=== PATIENT | male | born 1960 | race Caucasian/White ===

== ENCOUNTER 2022-11-06 11:49 | Emergency (ER) | payer BC, SELFPAY ==
[2022-11-06] VITALS (24 sets, daily range): BP systolic 96–145; BP diastolic 68–95; PULSE 87–138; RESP 16–18; TEMP 36.4–37.1; O2SAT 97–99
--- NOTE | ~2022-11-06 | CT_ITS ---
EXAMINATION: CT abdomen pelvis w con DATE: 11/06/2022 15:38 INDICATION: abdominal pain, lactic acidosis TECHNIQUE: Computed tomography (CT) of the abdomen and pelvis was performed with 100 mL Omnipaque 350 intravenous contrast. Automated exposure control and iterative reconstruction technique were employe d. The dose-length product was 464.81 mGy-cm. COMPARISON: None. FINDINGS: Lower thorax: Mild senescent change. Mild scattered tree-in-bud opacities. Patulous, fluid-filled eso phagus, with mucosal hyperemia. Liver: Normal. Biliary/Gallbladder: Gallbladder is normal. No bile duct dilation. Pancreas: Atrophy Spleen: Normal. Adrenals:No mass. Kidneys: No mass, stone, or hydronephrosis. Bilateral cortical thinning. GI tract: Small bowel perforation at the junction of the fourth portion of the duodenum and jejunum, in a region of focal narrowing and wall edema, with a spherical outpouching that exhibits wall breakd own, possible perforated ulcer or diverticulum. Multiple loops of nearby dilated small bowel in the l eft abdomen. Severe wall edema involving a short segment of proximal jejunum with adjacent fluid and gas. Uniform bowel wall enhancement. Interloop fluid. No pneumatosis. Fecal small bowel content. Delarosa sition point in the left lower quadrant (axial image 126/214). No large bowel dilation. Appendix not visualized. Diverticulosis without diverticulitis. Mesentery/Peritoneum: Small volume abdominal free air and fluid. Large volume of fluid in the pelvis, with a dependent gas collections.. Retroperitoneum: No mass. Pelvis: The urinary bladder is decompressed. Minimal prostate calcification.. Soft Tissues: Soft tissues and body wall unremarkable. Bones: No acute osseous finding. IMPRESSION: 1. Pulmonary opacities may represent atypical infection and/or bronchiolitis. 2. Small volume pneumoperitoneum, with moderate volume abdominopelvic fluid, secondary to bowel perfo ration, from a small bowel perforation at the level of the ligament of Treitz. Differential includes but is not limited to: Perforated ulcer, perforated diverticulum, or foreign body perforation. 3. Small bowel obstruction, transition point in the left lower quadrant. 4. Short segment of severe wall edema involving the proximal jejunum, likely secondary to inflammator y or ischemic change, given the presence of the nearby perforation. Results reported telephonically to Dr. Irving Reagan by Dr. Kramer at 4:20 PM on 11/06/2022. Reviewed, dictated and finalized at location K. PLANT MANAGER IMPRESSION: 1. Pulmonary opacities may represent atypical infection and/or bronchiolitis. 2. Small volume pneumoperitoneum, with moderate volume abdominopelvic fluid, se condary to bowel perforation, from a small bowel perforation at the level of th e ligament of Treitz. Differential includes but is not limited to: Perforated u lcer, perforated diverticulum, or foreign body perforation. 3. Small bowel obstruction, transition point in the left lower quadrant. 4. Short segment of severe wall edema involving the proximal jejunum, likely se condary to inflammatory or ischemic change, given the presence of the nearby pe rforation. Results reported telephonically to Dr. Irving Reagan by Dr. Kramer at 4:20 PM on 11/06/2022.
--- NOTE | ~2022-11-06 | XR_ITS ---
EXAM: XR abdomen NG/feed tube insert DATE: 11/06/2022 17:26 HISTORY: NG tube placed . COMPARISON: None available. FINDINGS: Bibasilar scar/atelectasis. NG tube, tip and side port project over the stomach. Normal erwin wel gas pattern. No organomegaly. No abnormal abdominal calcification. Degenerative change in the spi ne. IMPRESSION: NG tube, in good position. Reviewed, dictated and finalized at location K. ICAL INTEGRATION PRACTITIONER IMPRESSION: NG tube, in good position.
--- NOTE | ~2022-11-06 | XR_ITS ---
EXAM: XR abdomen NG/feed tube rechec DATE: 11/06/2022 18:14 HISTORY: Tube fell out during transfer, new tube placed . COMPARISON: 11/06/2022 at 5:22 PM. FINDINGS:/IMPRESSION: The NG tube has been replaced/repositioned, the tip and side port project over the stomach. No other significant interval change. Reviewed, dictated and finalized at location K. AGE TESTER
--- NOTE | 2022-11-06 12:04 | ED.GENADULT ---
HPI - General Adult General Chief complaint: Urogenital-Male Stated complaint: abdominal pain Time Seen by Provider: 11/06/22 11:56 History of Present Illness HPI narrative: Abe is a previously healthy 61M that presented to the ED with abdominal pain. It started yesterday afternoon and is a bilateral lower abdominal pain that is worse with bearing down, coughing or sneezing. It is better with lying down. He had 4 episodes of non-bloody vomiting last night. Last BM was yesterday morning. No diarrhea, fevers or chills. Related Data Home Medications Medication Instructions Recorded Confirmed No Home Medications 11/06/22 11/06/22 Allergies Allergy/AdvReac Type Severity Reaction Status Date / Time Penicillins Allergy Unknown Verified 11/06/22 12:02 zinc oxide Allergy Unknown Verified 11/06/22 12:02 Review of Systems Review of Systems: All systems reviewed & are unremarkable except as noted in HPI and below Exam Const: General: healthy appearing and no acute distress Nutritional Appearance: well nourished Orientation/consciousness: patient oriented x3 Limitations: no limitations HENMT: Head: normal to inspection Ears: external ears normal Face/Nose/Sinus: Normal external nose present Face and sinus: normal facial exam Eyes: Conjunctivae: conjunctivae normal Pupils: Equal, round and reactive pupils present Neck: Neck: normal visual inspection Chest: Chest palpation & inspection: normal inspection of the chest Resp: Effort & Inspection: normal respiratory effort Auscultation: clear to auscultation bilaterally Cardio: Rate: regular rate Rhythm: regular rhythm GI: Inspection: non-distended Auscultation: normal bowel sounds Other: TTP diffusely but worse in the inferior abdomen. No rebound tenderness or guarding : Other: No CVA tenderness Back/Spine/Pelvis: Back: no CVA tenderness Skin: General skin exam: normal color Rashes: no rashes Neuro: General: patient oriented x3 and moves all extremities Speech: normal speech Extrem: General: normal to inspection Psych: Mental Status: mental status grossly normal Affect: normal affect Course Course Emergency Course: Ordered morphine, zofran labs and UA as well as fluids. A second liter was ordered as he continued to not urinate. Labs showed a normal WBC and mild anemia with an Hgb of 11.5, hyponatremia at 128, suspected NICA (Cr of 2.24 but no baseline), and lactic acid of 5.6 and low magnesium as well as CRP of 13.4. EXAMINATION: CT abdomen pelvis w con DATE: 11/06/2022 15:38 INDICATION: abdominal pain, lactic acidosis TECHNIQUE: Computed tomography (CT) of the abdomen and pelvis was performed with 100 mL Omnipaque 350 intravenous contrast. Automated exposure control and iterative reconstruction technique were employed. The dose-length product was 464.81 mGy-cm. COMPARISON: None. FINDINGS: Lower thorax: Mild senescent change. Mild scattered tree-in-bud opacities. Patulous, fluid-filled esophagus, with mucosal hyperemia. Liver: Normal.? Biliary/Gallbladder: Gallbladder is normal. No bile duct dilation. Pancreas: Atrophy Spleen: Normal. Adrenals:No mass. Kidneys: No mass, stone, or hydronephrosis. Bilateral cortical thinning. GI tract: Small bowel perforation at the junction of the fourth portion of the duodenum and jejunum, in a region of focal narrowing and wall edema, with a spherical outpouching that exhibits wall breakdown, possible perforated ulcer or diverticulum. Multiple loops of nearby dilated small bowel in the left abdomen. Severe wall edema involving a short segment of proximal jejunum with adjacent fluid and gas. Uniform bowel wall enhancement. Interloop fluid. No pneumatosis. Fecal small bowel content. Transition point in the left lower quadrant (axial image 126/214). No large bowel dilation. Appendix not visualized. Diverticulosis without diverticulitis. Mesentery/Peritoneum: Small volume abdominal free air and fluid. Large volume of
[2022-11-06] MEDS: ONDANSETRON INJ 4 MG/2 ML VIAL IV PUSH (12:18)
[2022-11-06] MEDS: LACTATED RINGERS 1,000 ML 999 ML IV CONT ×2 (12:18→14:07)
[2022-11-06] MEDS: MORPHINE SULFATE (*CRX) 4 MG/ML INJ IV PUSH ×2 (12:21→16:28)
[2022-11-06 12:57] LABS: Hematocrit 36.7 % (40.0-54.0); Hemoglobin 11.5 g/dL (14.0-18.0); Mean Corpuscular HGB Conc 31.3 g/dL (32.0-36.0); Mean Corpuscular Hemoglobin 25.3 pg (27.0-31.0); Mean Corpuscular Volume 80.7 fL (78.0-102.0); Mean Platelet Volume 8.5 fl (8.7-11.0); Platelet Count Result 482 K/mm3 (150-420); Red Blood Count 4.55 M/mm3 (4.70-6.10); Red Cell Distribution Width 17.7 % (11.6-14.4); White Blood Count 7.4 K/mm3 (4.8-10.8)
[2022-11-06 13:09] LABS: Prothrombin Time 10.9 Seconds (9.50-12.10)
[2022-11-06 13:10] LABS: Influenza A QL RT-PCR Negative (Negative); Influenza B QL RT-PCR Negative (Negative); SARS-CoV-2 RNA PCR Negative (Negative)
[2022-11-06 13:15] LABS: RSV RNA, RT-PCR Negative (Negative)
[2022-11-06 13:24] LABS: Alkaline Phosphatase 73 U/L (46-116); Chloride 91 mmol/L (98-108); Estimated CRCL calculation 31 ml/min; Estimated Glomerular Filt Rate 30; Glucose 180 mg/dL (70-99); Lipase 31 U/L (16-77); Magnesium 1.4 mg/dL (1.8-2.4); Potassium 4.8 mmol/L (3.5-5.1); Sodium 128 mmol/L (136-145)
[2022-11-06 13:29] LABS: Lactic Acid Reflex 5.6 mmol/L (0.4-2.0)
[2022-11-06 13:41] LABS: Anion Gap 11 mmol/L (8-16); Aspartate Amino Transferase 21 U/L (15-37); Carbon Dioxide 26 mmol/L (21-32); Total Protein 6.1 g/dL (6.4-8.2)
[2022-11-06 14:40] LABS: Alanine Aminotransferase 15 U/L (16-63); Albumin Level 2.6 g/dL (3.4-5.0); Bilirubin,Total 0.6 mg/dL (0.00-1.00); Blood Urea Nitrogen 29 mg/dL (7-18); Calcium 8.7 mg/dL (8.5-10.1); Osmolality Calculated 276 mOsm/kg (285-295)
[2022-11-06 14:44] LABS: Bilirubin Urine 1+ (Negative); Blood Urine Negative (Negative); Glucose Urine UA Negative (Negative); Ketones Urine 1+ (Negative); Leukocyte Esterase Ur Negative LEU/UL (Negative); Nitrate Urine Negative (Negative); Protein Urine 1+ (Negative); Specific Grav Ur 1.025 (1.010-1.020); Urobilinogen Urine 0.2 mg/dL (0.2-1.0); pH Urine 5.5 (5.0-8.0)
[2022-11-06 14:49] LABS: CRP 13.4 mg/dL (0.0-0.9)
[2022-11-06 15:03] LABS: Add Urine Microscopic? YES; Color Urine Dark Orange (Yellow)
[2022-11-06 15:04] LABS: Amorphous Sediment Urine Few; Appearance Urine Slightly Cloudy (Clear); Hyaline Casts Urine 50+ /lpf
[2022-11-06 15:05] LABS: Mucus Urine Heavy /lpf
[2022-11-06 15:24] LABS: Band Neutrophils Percent 22 % (0-6); Lymphocytes Absolute Manual 0.96 K/mm3 (1.1-4.5); Lymphocytes Percent Manual 13 % (18-44); Neutrophils Absolute Manual 6.06 K/mm3 (1.3-6.7); Neutrophils Percent Manual 60 % (46-73); Total Cells Counted 100
[2022-11-06 15:25] LABS: Basophils Absolute Manual 0.07 K/mm3 (0-0.1); Basophils Percent Manual 1 % (0-1); Eosinophils Percent Manual 0 % (1-6); Giant Platelets Present; Large Platelets Present; Monocytes Absolute Manual 0.29 K/mm3 (0.1-0.90); Monocytes Percent Manual 4 % (3-9); Platelet Clumps Present; Platelet Estimate Increased (Adequate); Polychromasia 1+ (NORMAL); Schistocytes None Seen (NORMAL)
[2022-11-06 15:53] LABS: Reflex Lactic Acid Yes or No Add Lactic
[2022-11-06 16:28] LABS: Lactic Acid 4.6 mmol/L (0.4-2.0)
[2022-11-06] MEDS: SODIUM CHLORIDE 0.9% IV 1,000 ML 200 ML IV CONT (16:49)
[2022-11-06] MEDS: CLINDAMYCIN 600 MG/D5W 50 ML 600 MG/50 ML PIGGYBACK 100 MG IVPB (16:49)
[2022-11-06 17:38] LABS: Gastric Negative Control Negative; Gastric Positive Control Positive; Occult Blood Gastric Fluid Positive; pH Gastric Fluid 4 (1-8)
[2022-11-06 17:39] LABS: Hematocrit 36.7 % (40.0-54.0); Hemoglobin 11.3 g/dL (14.0-18.0); Mean Corpuscular HGB Conc 30.8 g/dL (32.0-36.0); Mean Corpuscular Hemoglobin 25.2 pg (27.0-31.0); Mean Corpuscular Volume 81.9 fL (78.0-102.0); Mean Platelet Volume 8.5 fl (8.7-11.0); Platelet Count Result 473 K/mm3 (150-420); Red Blood Count 4.48 M/mm3 (4.70-6.10); Red Cell Distribution Width 17.9 % (11.6-14.4); White Blood Count 4.4 K/mm3 (4.8-10.8)
[2022-11-06] MEDS: PANTOPRAZOLE SODIUM IV 40 MG VIAL IV PUSH (17:44)
== END 2022-11-06 18:15 | disposition short-term general hospital (02) ==
PROVIDERS: Emergency Provider Family Medicine; PCP Nurse Practitioner
DX: K63.1 Perforation of intestine (nontraumatic) (principal); K56.609 Unspecified intestinal obstruction, unspecified as to partial versus complete obstruction; Z20.822 Contact with and (suspected) exposure to COVID-19
CPT/HCPCS: 36415; 74177; 80053; 81001; 82271; 83605; 83690; 83735; 83986; 85025; 85027; 85610; 86140; 87637; 96361; 96365; 96375; 96376; 99285; C9113; J2270; J2405; J7030; J7120; Q9967

== ENCOUNTER 2023-03-02 07:53 | Outpatient (CLI) | payer BC, SELFPAY ==
--- NOTE | ~2023-03-02 | CT_ITS ---
EXAMINATION: CT abdomen pelvis w con INDICATION: Abdominal pain post abdominal surgery TECHNIQUE: Computed tomographic images of the abdomen and pelvis were obtained after the administrati on of 100 cc of Omnipaque 350 intravenous contrast. The dose-length product (DLP) was 433.51 mGy-cm. Automated exposure control and iterative reconstruction technique were employed. COMPARISON: 11/06/2022 FINDINGS: Minimal dependent atelectasis is present in the lung bases. The heart size is normal. The l iver, spleen, pancreas, gallbladder, and adrenal glands are normal. The kidneys are unremarkable. The re is calcified atherosclerosis of the aorta and many of the other arteries. No pathologically enlarg ed abdominal or pelvic lymph nodes are identified. Colonic diverticulosis is present without evidence of diverticulitis. There is mild focal dilatation of the proximal jejunum at the surgical anastomosi s, likely postsurgical in nature. There is no free intraperitoneal gas. Postsurgical changes are note d in the midline abdominal subcutaneous tissues. No definite fluid collection or abscess are seen. Th ere is severe lumbar spondylosis at L4-5. IMPRESSION: 1. Surgical changes in left upper quadrant without acute abnormality. Reviewed, dictated and finalized at location A.
[2023-03-02 08:33] LABS: Estimated Glomerular Filt Rate 45
== END 2023-03-02 07:54 | disposition home or self-care (01) ==
LOC: CHSIMG 07:55
PROVIDERS: PCP Nurse Practitioner
DX: K63.1 Perforation of intestine (nontraumatic) (principal); S31.109A Unspecified open wound of abdominal wall, unspecified quadrant without penetration into peritoneal cavity, initial encounter; Z98.890 Other specified postprocedural states
CPT/HCPCS: 74177; Q9967